=== PATIENT | female | born 2000 | race Caucasian/White ===

== ENCOUNTER 2022-10-27 14:55 | Outpatient (CLI) | payer OTHER, SELFPAY ==
[2022-10-27 16:03] LABS: Beta HCG Quantitative < 2.39 mIU/ML
== END 2022-10-27 14:56 | disposition home or self-care (01) ==
PROVIDERS: PCP Pediatrics; Visit Provider Student in an Organized Health Care Education/Training Program
DX: N92.6 Irregular menstruation, unspecified (principal)
CPT/HCPCS: 36415; 84702